=== PATIENT | female | born 1980 | race Caucasian/White ===

== ENCOUNTER 2020-10-12 11:37 | Emergency (ER) | payer OTHER, SELFPAY ==
[2020-10-12 11:46] VITALS: BP 130/82; PULSE 97; RESP 16; TEMP 37.1; O2SAT 98
--- NOTE | 2020-10-12 12:40 | ED.URI ---
HPI - URI/Sore Throat General Chief Complaint: Urogenital-Female Stated Complaint: diahhrea sore throat nausea Time Seen by Provider: 10/12/20 12:06 Source: patient and RN notes reviewed Mode of arrival: ambulatory Limitations: no limitations History of Present Illness HPI Narrative: Patient presents today with a 2-day history of nausea, diarrhea, chills, mild left flank pain, dysuria. Left flank pain radiates to the left lower quadrant. Denies hematuria, urgency, frequency. She has been taking Tylenol for her symptoms. Patient reports that she had a gastric bypass in June and has had some kidney stones since that time. She also reports an intermittent sore throat over the past couple of days, but this has since resolved. Related Data Home Medications Medication Instructions Recorded Confirmed atenolol 50 mg PO DAILY 10/12/20 10/12/20 nortriptyline 25 mg PO DAILY 10/12/20 10/12/20 warfarin [Coumadin] 1 mg PO QMWF 10/12/20 10/12/20 warfarin [Coumadin] 2 mg PO [id number] 10/12/20 10/12/20 Allergies Allergy/AdvReac Type Severity Reaction Status Date / Time No Known Allergies Allergy Verified 10/12/20 11:55 Review of Systems Review of Systems: CONSTITUTIONAL: Denies body aches, fever, chills, or sweats. EYES: Denies visual changes, redness, or discharge. ENT: Denies rhinorrhea, congestion, sore throat, or otalgia. CARDIOVASCULAR: Denies chest pain, palpitations, or edema. RESPIRATORY: Denies cough or dyspnea. GASTROINTESTINAL: Denies abdominal pain, or diarrhea.+ Nausea and vomiting, left flank pain GENITOURINARY: Denies hematuria.+ Dysuria SKIN: Denies rash, itching, or wounds. MUSCULOSKELETAL: Denies back pain, joint pain, or myalgia. NEUROLOGIC: Denies headache, numbness, tingling, or weakness. PSYCH: Denies depression or anxiety. [facility] Past Medical History Medical History (Updated 10/12/20 @ 14:25 by Sarahi Hamilton, PAXTON, BC) History of DVT (deep vein thrombosis) Surgical History Surgical History (Updated 10/12/20 @ 14:25 by Sarahi Hamilton, PAX[place], ) H/O gastric bypass Social History Social History Smoking status: Never smoker Comments At time of signature, I have reviewed and agree with nursing past medical, surgical, social and family history unless otherwise noted. Please see nursing chart for further information. There is no relevant family history pertinent to the presenting complaint Exam Narrative: GENERAL: Well-appearing, well-nourished, and in no acute distress. HEAD: Normocephalic, atraumatic. EYES: EOMI. No redness or drainage. Conjunctivae normal. ENT: Mucous membranes pink and moist. Nares clear. No rhinorrhea. TMs normal bilaterally. Throat normal. Uvula midline. NECK: Normal AROM. Supple. No lymphadenopathy. CHEST: No respiratory distress. Clear to auscultation. HEART: Regular rate and rhythm. No murmur appreciated. Normal peripheral pulses. ABDOMEN: Soft, nontender, nondistended, normal active bowel sounds. + Mild left CVAT MUSCULOSKELETAL: No bony tenderness. EXTREMITIES: Normal range of motion. No edema. SKIN: Warm, dry, no rash. Capillary refill normal. Normal skin turgor. NEURO: No focal deficits. Alert and oriented x3. Gait steady. PSYCH: Normal affect. No signs of depression or anxiety. Course Vital Signs Vital signs: Vital Signs Temperature 98.7 F 10/12/20 11:46 Pulse Rate 97 10/12/20 11:46 Respiratory Rate 16 10/12/20 11:46 Blood Pressure 130/82 10/12/20 11:46 Pulse Oximetry 98 10/12/20 11:46 Temperature 98.7 F 10/12/20 11:46 Pulse Rate 97 10/12/20 11:46 Respiratory Rate 16 10/12/20 11:46 Blood Pressure 130/82 10/12/20 11:46 Pulse Oximetry 98 10/12/20 11:46 Reviewed. Pt has been instructed to follow up with her PCP regarding her elevated blood pressure today. MDM - URI/Sore Throat Differential Diagnosis Differential diagnosis: Likely other (UTI, jossy
== END 2020-10-12 12:49 | disposition home or self-care (01) ==
PROVIDERS: Emergency Provider Nurse Practitioner; PCP Physician Assistant
DX: N30.01 Acute cystitis with hematuria (principal); Z86.718 Personal history of other venous thrombosis and embolism; Z98.84 Bariatric surgery status; Z79.01 Long term (current) use of anticoagulants
CPT/HCPCS: 81003; 87077; 87081; 87086; 87088; 87186; 87880; 99203; G0463

== ENCOUNTER 2024-05-30 19:25 | Emergency (ER) | payer OTHER, SELFPAY ==
--- NOTE | ~2024-05-30 | XR_ITS ---
CHEST RADIOGRAPH, PA AND LATERAL CLINICAL HISTORY: palpitations DRAPERY WORKER . COMPARISON: None available TECHNIQUE: PA and lateral views of the chest. FINDINGS The cardiomediastinal silhouette is unremarkable. The lungs are clear. Visualized osseous structures and soft tissues are unremarkable. IMPRESSION: No focal infiltrate or effusion. Reviewed, dictated and finalized at location A.
--- OUTSIDE RECORDS SUMMARY | 2024-05-30 19:28 | XMS_ITS | Clinical Summary ---
Author Organization [facility] Address [address] [place] [address] Phone Care Team Providers Care Tandem Operator Name Role Phone Ganesh Buck Primary Care Provider [phone] Allergies No known active allergies Medications Vit-Fe Fumarate-FA ( VITAMIN PO) Take 1 Tab by mouth daily. Reported on 06/29/2016 Active HYDROcodone-turner taminophen (NORCO) 5-325 MG TabletIndicatio ns:Moderate to Moderately Severe Pain Take 1-2 Tabs by mouth every 4 hours as needed for Pain. Indications: Moderate to Moderately Severe Pain 30 Tab 0 6 Active Additional Information Patient not taking.Reported on 06/29/2016 ibuprofen (MOTRIN) 600 MG Tablet Take 1 Tab by mouth every 6 hours as needed for Pain. 30 Tab 3 6 Active Additional Information Patient not taking.Reported on 06/29/2016 PARoxetine (PAXIL) 10 MG Tablet Take 10 mg by mouth daily. Active ondansetron (ZOFRAN) 4 MG Tablet Take 1-2 Tablets by mouth every 8 hours as needed for Nausea - 1st line. 10 Tablet Active Active Problems Problem Noted Date Diagnosed Date Adjustment disorder with mixed anxiety and depre ssed mood 06/30/2016 Encounters Date Type Department Care Team Description 05/02/2024 5:35 AM APPLIANCE SERVICER - 05/02/2024 7:09 AM APPLIANCE SERVICER Emergency [facility] [address] [place] [address] Jeramy Flores, DO Vomiting Discharge Disposition: Discharged to home or Selfcare 05/02/2024 Travel from Last 3 Months Family History Medical History Relation Name Comments Heart Attack Maternal Grandfather Heart Disease Maternal Grandfather Diabetes Maternal Grandmother Heart Attack Maternal Grandmother Heart Disease Maternal Grandmother Heart Disease Mother Hypertension Mother Migraines Mother Relation Name Status Comments Father Alive Maternal Grandfather Maternal Grandmother Mother Alive Social History Tobacco Use Types Packs/Day Years Used Date Smoking Tobacco: Former Cigarettes 0.1 3 0 06/18/2002 - 06/18/2005 Smokeless Tobacco: Never Alcohol Use Standard Drinks/Week Comments No 0 (1 standard drink = 0.6 oz pur e alcohol) Sexually Active Control Partners Comments Yes Male Comments No Sex and Gender Information Value Date Recorded Sex Assigned at Not on file Legal Sex Female 7:08 PM CDT Gender Identity Not on file Sexual Orientation Not on file Last Filed Vital Signs Vital Sign Reading Time Taken Comments Blood Pressure 106/54 05/02/2024 7:00 AM APPLIANCE SERVICER Pulse 95 05/02/2024 7:00 AM APPLIANCE SERVICER Temperature 37.6 C (99.7 F) 05/02/2024 7:00 AM APPLIANCE SERVICER Respiratory Rate 16 05/02/2024 7:00 AM APPLIANCE SERVICER Oxygen Saturation 100% 05/02/2024 7:00 AM APPLIANCE SERVICER Inhaled Oxygen Concentration - - Weight 75.7 kg (166 lb 14.2 oz) 05/02/2024 5:43 AM APPLIANCE SERVICER Height 167.6 cm (5' 6 ) 05/02/2024 5:43 AM APPLIANCE SERVICER Body Mass Index 26.94 05/02/2024 5:43 AM APPLIANCE SERVICER Plan of Treatment Health Maintenance Due Date Last Done Comments Hepatitis C Virus (HCV) Screening 1981 Mammogram 1981 TdaP Immunization 1981 Hepatitis B Immunization (1 of 3 - 19+ 3-dose series) 2000 Pap Smear 2002 Cervical Cancer Screening (CCS) 09/04/2011 HPV/Cotest 09/04/2011 Discussion re Starting/Frequ ency of Mammograms 2021 Influenza Immunization (#1) 2023 SARS-COV-2 Immunization ( season) 2023 Respiratory Syncytial Virus (RSV) Immunization (Adult) (1 - 1-dose 75+ series) 2056 Meningococcal Immunization (ACWY) Aged Out No longer eligible based on patient's age to complete this topic Pneumococcal Immunization Combined Aged Out No longer eligible based on patient's age to complete this topic Rotavirus Immunization Aged Out No lo nger eligible based on patient's age to complete this topic Procedures Procedure Name Priority Date/Time Associated Diagnosis Comments POCT URINE HCG () STAT 05/02/2024 6:41 AM APPLIANCE SERVICER CBC WITH AUTO DIFFERENTIAL STAT 05/02/2024 6:16 AM APPLIANCE SERVICER COMPLETE BLOOD COUNT (CBC) WITH DIFF STAT 05/02/2024 6:16 AM APPLIANCE SERVICER CMP (COMPREHENSIVE METABOLIC PANEL) STAT 05/02/2024 6:16 AM APPLIANCE SERVICER RSV,SARS-COV-2,INFLUE NZA A&B BY PCR STAT 05/02/2024 5:45 AM APPLIANCE SERVICER from Last 3 Months Results * POCT Urine HCG () (05/02/2024 6:41 AM APPLIANCE SERVICER) Pathologist [facility] POC URINE Negative POC URINE CONTROL Card Feeder Pass Urine 05/02/2024 6:41 AM APPLIANCE SERVICER Jeramy Flores DO POINT OF CARE TESTING ( MANUAL) Final Result * (ABNORMAL) CBC with Auto Differential (05/02/2024 6:16 AM APPLIANCE SERVICER) Pathologist [facility] WBC 6.08 4.00 - 12.00 10(3)/mcL 05/02/2024 6:57 AM APPLIANCE SERVICER [facility] RBC 4.96 3.80 - 5.30 10(6)/mcL 05/02/2024 6:57 AM APPLIANCE SERVICER [facility] HEMOGLOBIN (HGB) 12.4 12.0 - 15.8 g/dL 05/02/2024 6:57 AM APPLIANCE SERVICER [facility] HEMATOCRIT (HCT) 40.3 36.0 - 47.0 % 05/02/2024 6:57 AM [facility] MCV 81.3(L) 82.0 - 96.0 fL 05/02/2024 6:57 AM [facility] MCH 25.0(L) 26.0 - 34.0 pg 05/02/2024 6:57 AM [facility] MCHC 30.8(L) 31.0 - 36.0 g/dL 05/02/2024 6:57 AM [facility] PLATELET COUNT 248 140 - 440 10(3)/mcL 05/02/2024 6:57 AM [facility] RDW 21.9(H) 11.8 - 15.5 % 05/02/2024 6:57 AM [facility] MPV 10.6 9.7 - 12.4 fL 05/02/2024 6:57 AM [facility] NEUTROPHILS 91.8(H) 47.0 - 73.0 % 05/02/2024 6:57 AM [facility] LYMPHOCYTES 3.5(L) 18.0 - 42.0 % 05/02/2024 6:57 AM [facility] MONOCYTES 3.9(L) 4.0 - 12.0 % 05/02/2024 6:57 AM [facility] EOSINOPHILS 0.3 0.0 - 5.0 % 05/02/2024 6:57 AM [facility] BASOPHILS 0.5 0.0 - 1.0 % 05/02/2024 6:57 AM [facility] ABSOLUTE NEUTROPHILS 5.58 1.60 - 7.70 10(3)/mcL 05/02/2024 6:57 AM [facility] ABSOLUTE LYMPHOCYTES 0.21(L) 1.30 - 3.20 10(3)/mcL 05/02/2024 6:57 AM [facility] ABSOLUTE MONOCYTES 0.24 0.20 - 1.00 10(3)/mcL 05/02/2024 6:57 AM [facility] ABSOLUTE EOSINOPHIL 0.02 0.00 - 0.40 10(3)/mcL 05/02/2024 6:57 AM APPLIANCE SERVICER [facility] ABSOLUTE BASOPHILS 0.03 0.00 - 0.10 10(3)/mcL 05/02/2024 6:57 AM APPLIANCE SERVICER [facility] NRBC PER 100 WBC 0 05/03/19 6:57 AM APPLIANCE SERVICER [facility] RESULTS ARE CONSISTENT WITH PERIPHERAL SMEAR REVIEW Yes 05/02/2024 6:57 AM [facility] RBC MORPHOLOGY CONSISTENT WITH INDICES Yes 05/02/2024 6:57 AM [facility] LARGE PLATELETS 1+ 6:57 AM [facility] Blood Venipuncture / Unknown 05/02/2024 6:16 AM APPLIANCE SERVICER 05/02/2024 6:25 AM APPLIANCE SERVICER us Jeramy Flores DO HEMATOLOGY ORDERABLES F inal Result [facility] [address] [place] [address] * (ABNORMAL) CMP (Comprehensive Metabolic Panel) (05/02/2024 6:16 AM APPLIANCE SERVICER) SODIUM 140 136 - 145 mmol/L 05/02/2024 6:47 AM [facility] POTASSIUM 3.9 3.5 - 5.1 mmol/L 05/02/2024 6:47 AM [facility] CHLORIDE 110(H) 98 - 107 mmol/L 05/02/2024 6:47 AM [facility] CO2, VENOUS 22 22 - 30 mmol/L 05/02/2024 6:47 AM [facility] ANION GAP 11.9 <18.0 mmol/L 05/02/2024 6:47 AM [facility] GLUCOSE 141(H) 70 - 99 mg/dL 05/02/2024 6:47 AM [facility] BUN 17 5 - 18 mg/dL 05/02/2024 6:47 AM [facility] CREATININE, BLOOD 0.88 0.60 - 1.00 mg/dL 05/02/2024 6:47 AM [facility] BUN/CREATININE RATIO 19 12 - 20 ratio 05/02/2024 6:47 AM [facility] TOTAL PROTEIN 7.3 6.0 - 8.0 g/dL 05/02/2024 6:47 AM [facility] ALBUMIN 4.0 3.5 - 5.0 g/dL 05/02/2024 6:47 AM [facility] A/G RATIO 1.2 1.0 - 2.2 05/02/2024 6:47 AM [facility] CALCIUM 8.7 8.7 - 10.5 mg/dL 05/02/2024 6:47 AM [facility] T BILI 0.6 0.2 - 1.2 mg/dL 05/02/2024 6:47 AM [facility] SGOT (AST) 31 <43 U/L 05/02/2024 6:47 AM [facility] SGPT (ALT) 46 <56 U/L 05/02/2024 6:47 AM [facility] ALKALINE PHOSPHATASE 82 40 - 150 U/L 05/02/2024 6:47 AM [facility] GFR, ESTIMATED >60 >=60 05/02/2024 6:47 AM [facility] Comment: Creatinine Clearance is the preferred criteria for selecting drug dose adjustments in renally impaired patients. The GFR is provided as additional pertinent clinical information. GFR is reported in mL/min/1.73 sq m. Calculation based on the Chronic Kidney Disease Epidemiology Collaboration (CKD- EPI) equation refit without adjustment for race. GFR, EST. >60 >=60 025 6:47 AM [facility] GFR, EST. NONAFRICAN >60 >=60 05/02/2024 6:47 AM [facility] Blood Venipuncture / Unknown 05/02/2024 6:16 AM APPLIANCE SERVICER 05/02/2024 6:25 AM APPLIANCE SERVICER us Jeramy Flores DO CHEMISTRY ORDERABLES Fi nal Result Performing Organization Address City/[facility]/ZIP Co de Phone Number [facility] [address] [place] [address] * RSV,SARS-COV-2,INFLUENZA A&B BY PCR (05/02/2024 5:45 AM APPLIANCE SERVICER) FLU A Negative Negative, Error 05/02/2024 6:53 AM APPLIANCE SERVICER [facility] FLU B Negative Negative 05/02/2024 6:53 AM APPLIANCE SERVICER [facility] RESP SYNC VIRUS Negative Negative 6:53 AM APPLIANCE SERVICER [facility] SARSCOV2 NOT DETECTED (Reference Range for this test is Not Detected) 05/02/2024 6:53 AM APPLIANCE SERVICER [facility] Comment:This test was perfor med by a Reverse Mixing Machine Tender Cork Gasket PCR Method. Swab NASOPHARYNGEAL STRUCTURE / Unknown Non-Phlebotomy Collection / Unknown 05/02/2024 5:45 AM APPLIANCE SERVICER 05/02/2024 6:06 AM APPLIANCE SERVICER us Kevin Lo MD MICROBIOLOGY - GENERAL ORD ERABLES Final Result Performing Organization Address City/[facility]/ZIP Co de Phone Number [facility] [address] [place] [address] from Last 3 Months Insurance MEDICAID OLEARY Advance Directives * Full Code (Latest Code Status on File) Date Activated Date Inactivated Comments 09/11/2015 5:47 AM 09/14/2015 12:15 PM CPR-Full Tr eatment: FULL ARREST: Attempt Resuscitation/CPR wit intubation and mechanical ventilation. PRE-ARREST: Use entire range of life support measures to stabilize the patient. * Full Code Date Activated Date Inactivated Comments 08/16/2015 9:00 PM 08/17/2015 12:55 AM CPR-Full Tr eatment: FULL ARREST: Attempt Resuscitation/CPR wit intubation and mechanical ventilation. PRE-ARREST: Use entire range of life support measures to stabilize the patient. * Full Code Date Activated Date Inactivated Comments 06/19/2015 12:09 PM 06/19/2015 4:23 PM CPR-Full Tr eatment: FULL ARREST: Attempt Resuscitation/CPR wit intubation and mechanical ventilation. PRE-ARREST: Use entire range of life support measures to stabilize the patient. Care Teams Tandem Operator Relationship Specialty Start Date End Date Ganesh Buck, [address] [place] [address] PCP - General Physician Radiology Nurse 06/17/16
--- OUTSIDE RECORDS SUMMARY | 2024-05-30 19:28 | XMS_ITS | Encounter Summary ---
Author Organization [facility] Address [address] [place] [address] Phone Care Team Providers Care Bakery Demonstrator Name Role Phone Ganesh Buck Primary Care Provider [phone] Encounter Details Date Type Department Care Team (Late st Contact Info) Description 07/10/2020 Telephone [facility] Surgery [address] [place] [address] Medical Office Building [address] [place] [address] Wen Kessler Social History Tobacco Use Types Packs/Day Years Used Date Smoking Tobacco: Never Smokeless Tobacco: Never Alcohol Use Standard Drinks/Week Comments No 0 (1 standard drink = 0.6 oz pur e alcohol) AUDIT-C Answer Date Recorded Q1: How often do you have a drink containing alc ohol? Never 07/01/2020 Average Number of Drinks Not on file 021 Frequency of Binge Drinking Not on file 05/2020 Comments No Sex and Gender Information Value Date Recorded Sex Assigned at Not on file Legal Sex Female 11:50 PM LANGUAGE TRANSLATOR Gender Identity Not on file Sexual Orientation Straight 08/18/2020 12 :35 PM CDT documented as of this encounter Plan of Treatment Not on file documented as of this encounter Visit Diagnoses Not on filedocumented in this encounter Additional Health Concerns Infection Onset Date Last Indicated Resolved Time COVID: Suspected 03/13/2021 03/13/2021 03/13/2021 8:37 AM LANGUAGE TRANSLATOR COVID19 03/13/2021 03/13/2021 03/23/2021 3:05 AM LANGUAGE TRANSLATOR COVID: Recovered Comment:Added based on recent COVID infection. 03/23/2021 04/23/2021 07/21/2021 3:07 AM C DT COVID: Suspected 10/09/2021 10/09/2021 10/09/2021 5:06 PM CDT COVID: Suspected 10/09/2021 10/09/2021 10/09/2021 9:59 PM CDT COVID: Suspected 01/01/2022 01/01/2022 01/01/2022 5:06 PM CDT COVID: Suspected 02/10/2022 02/10/2022 02/10/2022 5:33 PM LANGUAGE TRANSLATOR COVID19 02/10/2022 02/10/2022 02/20/2022 3:05 AM LANGUAGE TRANSLATOR COVID: Recovered Comment:Added based on recent COVID infection. 02/20/2022 02/24/2022 05/21/2022 3:05 AM C DT COVID: Suspected 04/23/2022 04/23/2022 04/23/2022 9:32 AM LANGUAGE TRANSLATOR Influenza, adult 04/23/2022 04/23/2022 04/30/2022 3:07 AM LANGUAGE TRANSLATOR COVID: Suspected 08/25/2023 08/25/2023 08/25/2023 12:00 PM CDT documented as of this encounter Care Teams Bakery Demonstrator Relationship Specialty Start Date End Date Ganesh Buck PA [address] [place] [address] PCP - General 12/16/16 documented as of this encounter
--- OUTSIDE RECORDS SUMMARY | 2024-05-30 19:28 | XMS_ITS | Referral Summary ---
Author Organization [facility] Address [address] [place] [address] Care Team Providers Care Sandblaster Supervisor Name Role Phone Ganesh Buck Primary Care Provider [phone] Encounters Date Type Department Care Team Description 04/04/2024 1:29 PM HONING MACHINE OPERATOR - 04/04/2024 11:59 PM HONING MACHINE OPERATOR Hospital Encounter [facility] Cardiology [address] [place] [address] Sinus tachycardia Discharge Disposition: Discharge to home or self care from Last 3 Months Allergies No known active allergies Medications atenoloL (TENORMIN) 50 mg tablet Take 1 tablet (50 mg total) by mouth daily 2 Active buPROPion SR (WELLBUTRIN SR) 200 mg 12 hr tablet Take 1 tablet (200 mg total) by mouth 2 (two) times a day 2 Active busPIRone (BUSPAR) 5 mg tablet Take 1 tablet (5 mg total) by mouth 2 (two) times a day 2 Active medroxyPROGESTE John 150 mg/mL injection ADMINISTER 1 ML IN THE MUSCLE EVERY 3 MONTHS 2 Active atorvastatin (LIPITOR) 20 mg tablet Take 1 tablet (20 mg total) by mouth daily 4 Active Active Problems Problem Noted Date Diagnosed Date Abdominal panniculus 09/28/2021 History of bariatric surgery 09/28/2021 Bariatric surgery status 01/15/2021 Nutritional counseling 10/09/2020 Portal vein thrombosis 07/11/2020 Assessment & Plan (07/11/2020 11:24 AM CDT): While isolated PV thrombosis in absence of cirrhosis is rare, it is most likely a complication from recent gastric bypass surgery via a local inflammatory effect. Patient has no h/o thrombosis and no family history of thrombophilia. She is a non-smoker. Her only risks for thrombosis are obesity and hormonal contraceptive depot injections. She has not had COVID vaccine or COVID. I do not believe she requires a thrombophilia work-up at this time. She has no evidence of a myeloproliferative disorder as her Hgb is low, plt are normal, and WBC is normal. As far as treatment, I have discussed options of warfarin vs eliquis. I would favor eliquis; patient agrees. Her rapidly changing diet would make warfarin dosing difficult. She will need anticoagulation for 3-6 months for first episode of provoked thromboembolism. RECS: -stop heparin now -Start eliquis 10mg BID for 7 days, then 5mg BID for 3-6 months -Advised for patient to discuss with ob-air hose coupler about switching to non-hormonal method of contraception -Agree with extremity US to r/o occult DVT Sinus tachycardia 07/11/2020 Assessment & Plan (07/11/2020 9:59 AM CDT): Unclear etiology. Perhaps hypovolemic in s/o recent gastric bypass. Other evidence for hypovolemia includes severe AGMA. She is asymptomatic and ST has improved after fluids. CT chest negative for PE. Continue home atenolol. No further w/u recommended High anion gap metabolic acidosis 07/11/2020 Assessment & Plan (07/11/2020 9:59 AM CDT): Suspect starvation ketosis related to recent gastric bypass and reported 15lbs weight loss. AGMA improved as expected with IVF. Iron deficiency anemia 07/11/2020 Assessment & Plan (07/11/2020 10:00 AM CDT): Recent iron labs show profound iron deficiency. Ferritin 8, iron 21, iron sat 4%. Hgb stable ~10-11. Continue PO iron. Consider IV iron in future if doesn't improve with PO. Low back pain 03/14/2020 Essential hypertension 03/14/2020 Assessment & Plan (07/11/2020 9:53 AM CDT): Continue atenolol. Major depressive disorder, recurrent episode, mi ld 03/14/2020 Resolved Problems Problem Noted Date Diagnosed Date Resolved Date Morbid obesity (CMS/HCC) 02/27/2020 Assessment & Plan (07/11/2020 9:53 AM CDT): S/p recent gastric bypass. Social History Tobacco Use Types Packs/Day Years Used Date Smoking Tobacco: Never Smokeless Tobacco: Never Tobacco Cessation:Counseling Given: Not Answered Alcohol Use Standard Drinks/Week Comments No 0 [...] on file Legal Sex Female 11:50 PM HONING MACHINE OPERATOR Gender Identity Not on file Sexual Orientation Straight 08/18/2020 12 :35 PM CDT Last Filed Vital Signs Vital Sign Reading Time Taken Comments Blood Pressure 112/77 01/12/2024 9:56 AM HONING MACHINE OPERATOR Pulse 69 01/12/2024 9:56 AM HONING MACHINE OPERATOR Temperature 36.1 C (97 F) 08/25/2023 11:40 AM CDT Respiratory Rate 16 08/25/2023 11:40 AM CDT Oxygen Saturation 99% 08/25/2023 11:40 AM CDT Inhaled Oxygen Concentration - - Weight 72.6 kg (160 lb) 04/04/2024 1:45 PM HONING MACHINE OPERATOR Height 167.6 cm (5' 6 ) 04/04/2024 1:45 PM HONING MACHINE OPERATOR Body Mass Index 25.82 04/04/2024 1:45 PM HONING MACHINE OPERATOR Plan of Treatment Not on file Procedures Procedure Name Priority Date/Time Associated Diagnosis Comments TRANSTHORACIC ECHO (TTE) COMPLETE W DOPPLER/CF WO CONTRAST Routine 04/04/2024 2:49 PM HONING MACHINE OPERATOR Sinus tachycardia from Last 3 Months Results * TRANSTHORACIC ECHO (TTE) COMPLETE W DOPPLER/CF WO CONTRAST (04/04/2024 2:49 PM HONING MACHINE OPERATOR) LV EF % CONS SCIMAGE Anatomical Region Laterality Modality Ultrasound 04/04/2024 1:50 PM HONING MACHINE OPERATOR Narrative 04/04/2024 2:54 PM HONING MACHINE OPERATOR [address] [address] Echocardiogram Report Patient Name: CRISTINA MCKEON : 1980 Study Date: 04/04/2024 1:50:22 PM Gender: F Tech: REHANGER Location: Echo Lab 2 Ref Provider: VERONICA AGUILAR Height(Cm): 168 BSA: 1.84 Weight(Kg): 72.6 Quality: Adequate Order Provider: VERONICA AGUILAR PROCEDURES: Echocardiographic Report: Transthoracic echocardiogram with complete 2D, M-Mode, and color Doppler examination. INDICATIONS: R00.0 Tachycardia, unspecified. MEASUREMENTS: 2D/MM Value Range Doppler Value Range EF Teich MM 66.4 % [ 54.0 - 74.0 ] DENISE Vmax 3.31 cm2 EF Mod BP 66 % [ 54 - 74 ] AV Mean PG 2 mmHg LVIDd MM 4.65 cm [ 3.80 - 5.20 ] AV Peak Gama 1.02 m/s [ 1.00 - 1.70 ] LVIDs MM 2.95 cm [ 2.20 - 3.50 ] AV VTI 23.94 cm LVPWd MM 1.05 cm [ 0.60 - 0.90 ] LVOT Diam 2.13 cm IVSd MM 0.73 cm [ 0.60 - 0.90 ] LVOT Peak Gama 0.95 m/s [ 0.70 - 1.10 ] LA Dimension MM 2.68 cm [ 2.70 - 3.80 ] LVOT VTI 20.55 cm AoR Diam MM 2.19 cm [ 2.70 - 3.70 ] MV E Peak Gama 0.82 m/s [ 0.60 - 1.30 ] ACS MM 1.43 cm MV A Peak Gama 0.41 m/s [ 1.00 - 1.20 ] MV Mean PG 1 mmHg MV PHT 41 msec [ 20 - 100 ] MVA 5.40 MV Decel Time 181 msec [ 104 - 258 ] PV Peak Gama 1.04 m/s [ 0.40 - 0.80 ] WA Peak Gama 2.03 m/s TR Peak Gama 2.58 m/s [ 1.00 - 2.80 ] TR Peak PG 27 mmHg RVSP 32.00 mmHg [ 10.00 - 36.00 ] E` 0.12 m/s E/E` 6.68 [ <= 10.00 ] PA Pressure 32.00 mmHg [ 10.00 - 36.00 ] 2D/MM Value Range Doppler Value Range - FINDINGS: Atrial Septum: Normal atrial septum. Left Ventricle: Normal left ventricular systolic function with no focal wall motion abnormalities. Normal left ventricular size. Left ventricular wall thickness upper limits of normal. Impaired diastolic relaxation Grade I. Ejection fraction is measured at 66 %. Left Atrium: The left atrium is normal in size. Right Ventricle: Normal right ventricular size. Normal right ventricular systolic function. Right Atrium: The right atrium is normal in size. Aortic Valve: Normal structure of the aortic valve. No evidence of hemodynamically significant aortic stenosis by Doppler. Mitral Valve: Normal structure of the mitral valve. No mitral valve regurgitation is seen. Pulmonic Valve: Normal structure of the pulmonic valve. Trivial regurgitation in the pulmonic valve. Tricuspid Valve: Normal structure of the tricuspid valve. Normal right ventricular systolic pressure. Trivial regurgitation in the tricuspid valve. Pericardium: Normal pericardium with no significant pericardial effusion. Aorta: Normal aortic root. IVC: The IVC is not well visualized. Pulmonary Artery: Pulmonary artery not well visualized. CONCLUSIONS: Normal left ventricular systolic function with no focal wall motion abnormalities. Normal left ventricular size. Left ventricular wall thickness upper limits of normal. Impaired diastolic relaxation Grade I. Ejection fraction is measured at 66 %. Normal right ventricular size. Normal right ventricular systolic function. Normal structure of the mitral valve. No mitral valve regurgitation is seen. Normal structure of the aortic valve. No evidence of hemodynamically significant aortic stenosis by Doppler. Normal structure of the tricuspid valve. Normal right ventricular systolic pressure. Trivial regurgitation in the tricuspid valve. Normal pericardium with no significant pericardial effusion. Electronically Signed By: Lisa Linder MD 04/04/2024 2:53:49 PM HONING MACHINE OPERATOR Procedure Note Lisa Linder MD - 04/04/[address] [address] Echocardiogram Report Patient Name: CRISTINA MCKEON : 1980 Study Date: 04/04/2024 1:50:22 PM Gender: F Tech: REHANGER Location: Echo Lab 2 [facility] Provider: VERONICA AGUILAR Height(Cm): 168 BSA: 1.84 Weight(Kg): 72.6 Quality: Adequate Order Provider: VERONICA AGUILAR PROCEDURES: Echocardiographic Report: Transthoracic echocardiogram with complete 2D, M-Mode, and color Dopplerexamination. INDICATIONS: R00.0 Tachycardia, unspecified. MEASUREMENTS: 2D/MM Value Range Doppler ValueRange EF Teich MM 66.4 % [ 54.0 - 74.0 ] DENISE Vmax 3.31cm2 EF Mod BP 66 % [ 54 - 74 ] AV Mean PG 2 mmHg LVIDd MM 4.65 cm [ 3.80 - 5.20 ] AV Peak Gama 1.02 m/s[ 1.00 - 1.70 ] LVIDs MM 2.95 cm [ 2.20 - 3.50 ] AV VTI 23.94cm LVPWd MM 1.05 cm [ 0.60 - 0.90 ] LVOT Diam 2.13cm IVSd MM 0.73 cm [ 0.60 - 0.90 ] LVOT Peak Gama 0.95 m/s[ 0.70 - 1.10 ] LA Dimension MM 2.68 cm [ 2.70 - 3.80 ] LVOT VTI 20.55cm AoR Diam MM 2.19 cm [ 2.70 - 3.70 ] MV E Peak Gama 0.82 m/s[ 0.60 - 1.30 ] ACS MM 1.43 cm MV A Peak Gama 0.41 m/s[ 1.00 - 1.20 ] MV Mean PG 1 mmHg MV PHT 41 msec [ 20 - 100 ] MVA 5.40 MV Decel Time 181 msec [ 104 - 258 ] PV Peak Gama 1.04 m/s [ 0.40 - 0.80 ] WA Peak Gama 2.03 m/s TR Peak Gama 2.58 m/s [ 1.00 - 2.80 ] TR Peak PG 27 mmHg RVSP 32.00 mmHg [ 10.00 - 36.00 ] E` 0.12 m/s E/E` 6.68 [ <= 10.00 ] PA Pressure 32.00 mmHg [ 10.00 - 36.00 ] 2D/MM Value Range Doppler ValueRange - FINDINGS: Atrial Septum: Normal atrial septum. Left Ventricle: Normal left ventricular systolic function with no focal wall motionabnormalities. Normal left ventricular size. Left ventricular wall thickness upper limits ofnormal. Impaired diastolic relaxation Grade I. Ejection fraction is measured at 66 %. Left Atrium: The left atrium is normal in size. Right Ventricle: Normal right ventricular size. Normal right ventricular systolicfunction. Right Atrium: The right atrium is normal in size. Aortic Valve: Normal structure of the aortic valve. No evidence of hemodynamicallysignificant aortic stenosis by Doppler. Mitral Valve: Normal structure of the mitral valve. No mitral valve regurgitation isseen. Pulmonic Valve: Normal structure of the pulmonic valve. Trivial regurgitation in thepulmonic valve. Tricuspid Valve: Normal structure of the tricuspid valve. Normal right ventricular systolicpressure. Trivial regurgitation in the tricuspid valve. Pericardium: Normal pericardium with no significant pericardial effusion. Aorta: Normal aortic root. IVC: The IVC is not well visualized. Pulmonary Artery: Pulmonary artery not well visualized. CONCLUSIONS: Normal left ventricular systolic function with no focal wall motionabnormalities. Normal left ventricular size. Left ventricular wall thickness upper limits ofnormal. Impaired diastolic relaxation Grade I. Ejection fraction is measured at 66 %. Normal right ventricular size. Normal right ventricular systolicfunction. Normal structure of the mitral valve. No mitral valve regurgitation isseen. Normal structure of the aortic valve. No evidence of hemodynamicallysignificant aortic stenosis by Doppler. Normal structure of the tricuspid valve. Normal right ventricular systolicpressure. Trivial regurgitation in the tricuspid valve. Normal pericardium with no significant pericardial effusion. Electronically Signed By: Lisa Linder MD 04/04/2024 2:53:49 PM HONING MACHINE OPERATOR Veronica Aguilar MD CV ECHO PROCEDURES Fin al Result from Last 3 Months Insurance [facility] Advance Directives For more information, please contact: [phone] * Full Code (Latest Code Status on File) Date Activated Date Inactivated Comments 07/10/2020 4:49 PM 07/13/2020 6:19 PM * Full Code Date Activated Date Inactivated Comments 07/01/2020 11:43 AM 07/03/2020 5:48 PM Care Teams Sandblaster Supervisor Relationship Specialty Start Date End Date Ganesh Buck PA [address] [place] [address] PCP - General 12/16/16
--- OUTSIDE RECORDS SUMMARY | 2024-05-30 19:28 | XMS_ITS | Clinical Summary ---
Author Organization [facility] Address [address] [place] [address] Care Team Providers Care Design Quality Engineer Name Role Phone Ganesh Buck Primary Care Provider [phone] Allergies No known active allergies Medications atenoloL [...] months -Advised for patient to discuss with ob-hot knife cutter about switching to non-hormonal method of contraception [...] 9:53 AM CDT): S/p recent gastric bypass. Encounters Date Type Department Care Team Description 04/04/2024 1:29 PM BASKET GRADER - 04/04/2024 11:59 PM BASKET GRADER Hospital Encounter [facility] Cardiology 1 [place] [address] Sinus tachycardia Discharge Disposition: Discharge to home or self care from Last 3 Months Surgical History Surgery Date Site/Laterality Comments SECTION section TONSILLECTOMY Tonsillectomy DELIO-EN-Y PROCEDURE 07/01/2020 GASTRIC BYPASS 02/29/2020 - 02/27/2021 Medical History Medical History Date Comments Depression Depression Morbid obesity (HCC) Hypertension Anxiety PONV (postoperative nausea and vomiting) PONV with her tonsillectomy Family History Medical History Relation Name Comments Other Father Alive and well; Heart attack Maternal Grandfather Heart attack Maternal Grandmother in her 60s Coronary artery disease Mother Pedrito nary artery disease; Heart failure Mother Hypertension Mother Hypertension; Relation Name Status Comments Father Alive Maternal Grandfather Maternal Grandmother Mother Social History Tobacco Use Types Packs/Day Years [...] on file Legal Sex Female 11:50 PM BASKET GRADER Gender Identity Not on file Sexual Orientation Straight 08/18/2020 12 :35 PM CDT Obstetrics History Last Filed Vital Signs Vital Sign Reading Time Taken Comments Blood Pressure 112/77 01/12/2024 9:56 AM BASKET GRADER Pulse 69 01/12/2024 9:56 AM BASKET GRADER Temperature 36.1 C (97 F) 08/25/2023 11:40 AM CDT Respiratory Rate 16 08/25/2023 11:40 AM CDT Oxygen Saturation 99% 08/25/2023 11:40 AM CDT Inhaled Oxygen Concentration - - Weight 72.6 kg (160 lb) 04/04/2024 1:45 PM BASKET GRADER Height 167.6 cm (5' 6 ) 04/04/2024 1:45 PM BASKET GRADER Body Mass Index 25.82 04/04/2024 1:45 PM BASKET GRADER Plan of Treatment Health Maintenance Due Date Last Done Comments Breast Cancer Screening-Mammogram 1980 Cervical Cancer Screening 1980 Depression Screening 1980 Hepatitis C Screening 1980 DTaP/Tdap/Td Vaccine (1 - Tdap) 1992 Varicella Vaccines (1 of 2 - 13+ 2-dose series) 1994 Regular Well Visit/Exam 18-64 09/04/1999 Influenza Vaccine (#1) 2023 0, 01/24/2018, 02/14/2015 Hepatitis B Screening Completed 10/08/2014 HPV Vaccines Aged Out No longer eligi ble based on patient's age to complete this topic Pneumococcal vaccine <65 Aged Out No longer eligible based on patient's age to complete this topic Procedures Procedure Name Priority Date/Time Associated Diagnosis Comments TRANSTHORACIC ECHO (TTE) COMPLETE W DOPPLER/CF WO CONTRAST Routine 04/04/2024 2:49 PM BASKET GRADER Sinus tachycardia from Last 3 Months Results * TRANSTHORACIC ECHO (TTE) COMPLETE W DOPPLER/CF WO CONTRAST (04/04/2024 2:49 PM BASKET GRADER) LV EF % CONS SCIMAGE Anatomical Region Laterality Modality Ultrasound 04/04/2024 1:50 PM BASKET GRADER Narrative 04/04/2024 2:54 PM BASKET GRADER [address] [place] [address] Echocardiogram Report Patient Name: CRISTINA MCKEON : 1980 Study Date: 04/04/2024 1:50:22 PM Gender: F Tech: AIR CONDITIONING ENGINEER Location: Echo Lab 2 Ref Provider: VERONICA [...] 1.04 m/s [ 0.40 - 0.80 ] UT Peak Gama 2.03 m/s TR Peak Gama [...] By: Lisa Linder MD 04/04/2024 2:53:49 PM BASKET GRADER Procedure Note Lisa Linder MD - 04/04/[address] [address] Echocardiogram Report Patient Name: CRISTINA MCKEON : 1980 Study Date: 04/04/2024 1:50:22 PM Gender: F Tech: AIR CONDITIONING ENGINEER Location: Echo Lab 2 Ref Provider: VERONICA [...] 1.04 m/s [ 0.40 - 0.80 ] UT Peak Gama 2.03 m/s TR Peak Gama [...] By: Lisa Linder MD 04/04/2024 2:53:49 PM BASKET GRADER us Veronica Aguilar MD CV ECHO PROCEDURES Fin al Result from Last 3 Months Insurance [facility] Advance Directives For more information, please contact: [phone] * Full Code (Latest Code Status on File) Date Activated Date Inactivated Comments 07/10/2020 4:49 PM 07/13/2020 6:19 PM * Full Code Date Activated Date Inactivated Comments 07/01/2020 11:43 AM 07/03/2020 5:48 PM Care Teams Design Quality Engineer Relationship Specialty Start Date End Date Ganesh Buck PA [address] [place] [address] PCP - General 12/16/16
--- NOTE | 2024-05-30 19:30 | ECG_ITS ---
Test Date: 2024-05-30 19:35:13 Measurements Intervals [place] Rate: 75 P: -1 [place]: 134 QRS: 15 QRSD: 98 T: -3 QT: 402 QTc: 450 Interpretive Statements SINUS RHYTHM BORDERLINE T WAVE ABNORMALITY- ANT/INF LEADS BASELINE ARTIFACT- II, III, AVR, AVF, V4-V6 BORDERLINE ECG No previous ECG available for comparison Electronically Signed On 05-30-2024 20:25:26 CDT by Michael Leary D.O.
[2024-05-30 19:31] VITALS: BP 128/86; PULSE 77; RESP 14; TEMP 36.8; O2SAT 100
--- NOTE | 2024-05-30 19:38 | ED_ITS ---
HPI - Arrhythmia/Palpitations General Chief Complaint: Arrhythmia/Palpitations Stated Complaint: heart palpitations Time Seen by Provider: 05/30/24 19:36 Source: patient and family Mode of arrival: ambulatory Limitations: no limitations History of Present Illness HPI narrative: 43 years old white female came to the ED by private car complaining of sudden onset of hot flashes, dizziness, lightheadedness, palpitation and shortness of breath lasted for 2 minutes 1 hour later had another episode similar to the 1st 1 lasted for approximately 1-2 minutes. History of anxiety and depression, hypertension hyperlipidemia, patient vapes occasionally, does not drink or use drugs. Patient had similar symptom numerous of time in the past. Was seen by a hydroelectric plant electrician for it with normal workup. Patient denies any fever, chills, nausea, vomiting, diarrhea, constipation, headache. Currently patient feeling okay. Patient is telling me that because she is in the emergency room right now, she feels safe and more relaxed. Patient reports a lot of stress lately currently on Wellbutrin and buspirone, run out of it week ago Related Data Home Medications ?Medication ?Instructions ?Recorded ?Confirmed ?Last Taken ?Type atenolol 50 mg tablet 50 mg PO DAILY 10/12/20 10/12/20 Unknown History nortriptyline 25 mg capsule 25 mg PO DAILY 10/12/20 10/12/20 Unknown History warfarin 1 mg tablet 1 mg PO QMWF 10/12/20 10/12/20 Unknown History warfarin 2 mg tablet 2 mg PO QTUTHSASU 10/12/20 10/12/20 Unknown History Allergies Allergy/AdvReac Type Severity Reaction Status Date / Time No Known Allergies Allergy Verified 05/30/24 19:26 Review of Systems 2 Review of Systems: All systems reviewed & are unremarkable except as noted in HPI and below PMFSH Past Medical History Medical History History of DVT (deep vein thrombosis) Surgical History Surgical History H/O gastric bypass Social History Social History Smoking status: Never smoker Exam 2 Narrative: General appearance: Well-developed, well-nourished intermittent signing Skin: Normal color Head: Normocephalic, nontraumatic Eyes: Clear conjunctiva ENT: Oropharynx normal, ears normal, nose normal Neck: Supple, nontender Chest and respiratory: Airway patent, no respiratory distress, no accessory muscle use Heart: Regular rate/rhythm Abdomen: Soft, nontender, no organomegaly, quiet bowel sounds Vascular: Normal peripheral pulses, normal capillary refill. Musculoskeletal: Normal range of motion, nontender back Neurologic: Alert and oriented ?3, JET OPERATOR is normal as tested, no gross motor deficit Course Vital Signs Vital signs: Vital Signs Temperature 36.8 C 05/30/24 19:31 Pulse Rate 77 05/30/24 19:31 Respiratory Rate 14 05/30/24 19:31 Blood Pressure 128/86 05/30/24 19:31 Pulse Oximetry 100 05/30/24 19:31 Oxygen Delivery Room Air 05/30/24 19:31 Temperature 36.8 C 05/30/24 20:18 Pulse Rate 78 05/30/24 20:18 Respiratory Rate 18 05/30/24 20:18 Blood Pressure 128/86 05/30/24 20:18 Pulse Oximetry 97 05/30/24 20:18 Oxygen Delivery Room Air 05/30/24 19:40 MDM - Arrhythmia/Palpitations MDM Narrative Medical decision making narrative: Patient presents with anxiety like symptoms Vital signs are stable Physical examination showing a patient with intermittent signing. Differential diagnosis include anxiety like symptoms, panic attack, hyperthyroidism, electrolyte imbalance Blood workup today includes CBC, CMP, troponin, showed no significant abnormality EKG showed normal sinus rhythm at 75 beats per minute, normal EKG Chest x-ray showed no acute abnormalities DIAGNOSIS PALPITATION, ANXIETY LIKE SYMPTOMS PATIENT FEELS MUCH BETTER MORE RELAXED AND ASYMPTOMATIC AFTER 1 MG OF ATIVAN IV. THE PT WAS DISCHARGED TO HOME.THE PT,S CONDITION UPON DISCHARGE WAS FAIR,EDUCATION WAS PROVIDED TO THE PT IN REFERENCE TO THE FINAL IMPRESSION,DISCHARGE STUDY RESULTS,TREATMENT,PROGNOSIS AND NEED FOR FOLLOW UP . Differential Diagnosis Differential diagnosis: Likely other (As above) Medical Records Attestation: I reviewed the patient's medical records. Lab Data Attestation: I reviewed the patient's lab results. 05/30/24 19:37 05/30/24 19:37 Labs: Lab Results 05/30/24 05/30/24 Range/Units 19:36 19:37 WBC 7.4 (4.5-10.0) K/mm3 RBC 4.62 (4.2-5.4) M/mm3 Hgb 12.2 (12.0-15.0) g/dL Hct 39.3 (37.0-47.0) % MCV 85.1 (80-100) fl MCH 26.4 (26-34) pg MCHC 31.0 L (32-36) g/dl RDW 21.4 H (11.5-14.5) % Plt Count 235 (150-375) k/mm3 MPV 10.7 H (7.4-10.4) fl Immature Gran % (Auto) 0.1 (0-0.5) % Neut % (Auto) 45.1 L (45.5-73.1) % Lymph % (Auto) 40.5 (18.3-44.2) % [place] % (Auto) 9.7 H (2.6-8.5) % Eos % (Auto) 3.5 (0-4.4) % Baso % (Auto) 1.1 (0.2-1.2) % Lymph # (Auto) 2.98 (0.9-3.2) K/mm3 [place] # (Auto) 0.7 H (0.1-0.6) K/mm3 Eos # (Auto) 0.3 (0-0.3) K/mm3 Baso # (Auto) 0.1 (0.0-0.1) K/mm3 Abs Immat Gran (auto) 0.01 (0.00-0.031) K/mm3 Absolute Neuts (auto) 3.3 (1.3-6.7) K/mm3 Absolute Nucleated RBC 0.000 (0.0-0.012) K/mm3 Nucleated RBC % 0.0 (0.0-0.2) % PT 13.6 (11.1-14.7) Seconds INR 1.0 APTT 27.3 (22.3-36.8) Seconds Sodium 142 (137-145) mmol/L Potassium 3.7 (3.4-5.0) mmol/L Chloride 110 H (98-107) mmol/L Carbon Dioxide 22 (22-30) mmol/L Anion Gap 10 (4-12) mmol/L BUN 14 (7-17) mg/dL Creatinine 0.91 (0.7-1.0) mg/dL Estim Creat Clear Calc 69 ml/min Estimated GFR > 60 (59 - ) Glucose 91 (65-110) mg/dL Calcium 8.8 (8.4-10.2) mg/dL Total Bilirubin 0.4 (0.2-1.3) mg/dL AST 50 H (14-36) U/L ALT 62 H (6-35) U/L Alkaline Phosphatase 92 (38-126) U/L Troponin I < 0.012 (0.000-0.034) ng/mL Total Protein 7.0 (6.3-8.2) g/dL Albumin 4.2 (3.5-5.1) g/dL Lipase 95 (23-300) U/L TSH 0.963 (0.465-4.680) uIU/mL ECG Data EKG #1: Attestation: I personally reviewed and interpreted this ECG as follows: ECG completion date: 05/30/24 ECG completion time: 20:06 Interpretation: Normal sinus rhythm at 75 beats per minute,, normal EKG, no previous EKG available for comparison Critical Care Time Critical Care Time Critical Care Time: No Discharge Plan Discharge Clinical Impression: Palpitations, Anxiety Patient Disposition: Home, Self-Care Condition: Improved Instructions: Heart Palpitations (ED), Anxiety (ED) Additional Instructions: Return if symptoms are worsening , call your family physician for appointment, take Tylenol as as needed for aches and pain, continue home medications. Get your buspirone as soon as possible Patient Language: Tanzanian Prescriptions: No Action nortriptyline 25 mg Capsule 25 mg PO DAILY warfarin [Coumadin] 2 mg Tablet 2 mg PO QTUTHSASU warfarin [Coumadin] 1 mg Tablet 1 mg PO QMWF atenolol 50 mg Tablet 50 mg PO DAILY ondansetron 8 mg tablet,disintegrating 8 mg PO Q4-6H PRN (Reason: nausea and vomiting) Qty: 20 0RF nitrofurantoin monohyd/m-cryst [Macrobid] 100 mg capsule 100 mg PO Q12H 7 Days Qty: 14 0RF Rx Instructions: must administer with a meal/food Follow-up/Referrals: Cielo,JOHN Dao [Primary Care Provider] -
[2024-05-30 19:40] VITALS: PULSE 72; O2SAT 100
[2024-05-30] MEDS: ASPIRIN 81 MG CHEWABLE TABLET 324 MG PO (19:40)
[2024-05-30 19:44] LABS: Basophils Absolute Auto 0.1 K/mm3 (0.0-0.1); Basophils Percent Auto 1.1 % (0.2-1.2); Eosinophils Absolute Auto 0.3 K/mm3 (0-0.3); Eosinophils Percent Auto 3.5 % (0-4.4); Hematocrit 39.3 % (37.0-47.0); Hemoglobin 12.2 g/dL (12.0-15.0); Immature Granulocyte Absolute 0.01 K/mm3 (0.00-0.031); Immature Granulocyte Percent A 0.1 % (0-0.5); Lymphocytes Absolute Auto 2.98 K/mm3 (0.9-3.2); Lymphocytes Percent Auto 40.5 % (18.3-44.2); Mean Corpuscular Hemoglobin 26.4 pg (26-34); Mean Corpuscular Volume 85.1 fl (80-100); Mean Platelet Volume 10.7 fl (7.4-10.4); Monocytes Absolute Auto 0.7 K/mm3 (0.1-0.6); Monocytes Percent Auto 9.7 % (2.6-8.5); Neutrophils Absolute Auto 3.3 K/mm3 (1.3-6.7); Neutrophils Percent Auto 45.1 % (45.5-73.1); Platelet Count Result 235 k/mm3 (150-375); Red Blood Count 4.62 M/mm3 (4.2-5.4); Red Cell Distribution Width 21.4 % (11.5-14.5); White Blood Count 7.4 K/mm3 (4.5-10.0)
--- OUTSIDE RECORDS SUMMARY | 2024-05-30 19:51 | XMS_ITS | Clinical Summary ---
Author Organization [facility] Address [address] [place] [address] Care Team Providers Care Strap Machine Operator Name Role Phone Ganesh Buck Primary Care Provider [phone] Allergies No known active allergies Medications atenoloL [...] months -Advised for patient to discuss with ob-building service worker about switching to non-hormonal method of contraception [...] Department Care Team Description 04/04/2024 1:29 PM CONTROL CENTER OPERATOR - 04/04/2024 11:59 PM CONTROL CENTER OPERATOR Hospital Encounter [facility] Cardiology [address] [place] [address] Sinus tachycardia Discharge Disposition: Discharge to home [...] on file Legal Sex Female 11:50 PM CONTROL CENTER OPERATOR Gender Identity Not on file Sexual Orientation Straight 08/18/2020 12 :35 PM CDT Obstetrics History Last Filed Vital Signs Vital Sign Reading Time Taken Comments Blood Pressure 112/77 01/12/2024 9:56 AM CONTROL CENTER OPERATOR Pulse 69 01/12/2024 9:56 AM CONTROL CENTER OPERATOR Temperature 36.1 C (97 F) 08/25/2023 11:40 AM CDT Respiratory Rate 16 08/25/2023 11:40 AM CDT Oxygen Saturation 99% 08/25/2023 11:40 AM CDT Inhaled Oxygen Concentration - - Weight 72.6 kg (160 lb) 04/04/2024 1:45 PM CONTROL CENTER OPERATOR Height 167.6 cm (5' 6 ) 04/04/2024 1:45 PM CONTROL CENTER OPERATOR Body Mass Index 25.82 04/04/2024 1:45 PM CONTROL CENTER OPERATOR Plan of Treatment Health Maintenance Due Date [...] DOPPLER/CF WO CONTRAST Routine 04/04/2024 2:49 PM CONTROL CENTER OPERATOR Sinus tachycardia from Last 3 Months Results * TRANSTHORACIC ECHO (TTE) COMPLETE W DOPPLER/CF WO CONTRAST (04/04/2024 2:49 PM CONTROL CENTER OPERATOR) LV EF % CONS SCIMAGE Anatomical Region Laterality Modality Ultrasound 04/04/2024 1:50 PM CONTROL CENTER OPERATOR Narrative 04/04/2024 2:54 PM CONTROL CENTER OPERATOR [address] [place] [address] Echocardiogram Report Patient Name: CRISTINA MCKEON : 1980 Study Date: 04/04/2024 1:50:22 PM Gender: F Tech: AUTOMOTIVE DETAILER Location: Echo Lab 2 Ref Provider: VERONICA [...] 1.04 m/s [ 0.40 - 0.80 ] [place] Peak Gama 2.03 m/s [place] Peak [place]ama [...] By: Lisa Linder MD 04/04/2024 2:53:49 PM CONTROL CENTER OPERATOR Procedure Note Lisa Linder MD - 04/04/[address] [address] Echocardiogram Report Patient Name: CRISTINA MCKEON : 1980 Study Date: 04/04/2024 1:50:22 PM Gender: F Tech: AUTOMOTIVE DETAILER Location: Echo Lab 2 Ref Provider: VERONICA [...] 1.04 m/s [ 0.40 - 0.80 ] [place] 2.03 m/s [place] Peak Gama [...] By: Lisa Linder MD 04/04/2024 2:53:49 PM CONTROL CENTER OPERATOR us Veronica Aguilar MD CV ECHO PROCEDURES Fin al Result from Last 3 Months Insurance [facility] Advance Directives For more information, please contact: [phone] * Full Code (Latest Code Status on File) Date Activated Date Inactivated Comments 07/10/2020 4:49 PM 07/13/2020 6:19 PM * Full Code Date Activated Date Inactivated Comments 07/01/2020 11:43 AM 07/03/2020 5:48 PM Care Teams Strap Machine Operator Relationship Specialty Start Date End Date Ganesh Buck PA [address] [place] [address] PCP - General 12/16/16
--- OUTSIDE RECORDS SUMMARY | 2024-05-30 19:51 | XMS_ITS | Clinical Summary ---
Author Organization [facility] Address [address] [place] [address] Phone Care Team Providers Care Supreme Court Judge Name Role Phone Ganesh Buck Primary Care Provider [phone] Allergies No known active allergies Medications Vit-Fe [...] Department Care Team Description 05/02/2024 5:35 AM DIRECTOR NEWS - 05/02/2024 7:09 AM DIRECTOR NEWS Emergency [facility] Emergency [address] [place] [address] Jeramy Flores, DO Vomiting Discharge [...] Comments Blood Pressure 106/54 05/02/2024 7:00 AM DIRECTOR NEWS Pulse 95 05/02/2024 7:00 AM DIRECTOR NEWS Temperature 37.6 C (99.7 F) 05/02/2024 7:00 AM DIRECTOR NEWS Respiratory Rate 16 05/02/2024 7:00 AM DIRECTOR NEWS Oxygen Saturation 100% 05/02/2024 7:00 AM DIRECTOR NEWS Inhaled Oxygen Concentration - - Weight 75.7 kg (166 lb 14.2 oz) 05/02/2024 5:43 AM DIRECTOR NEWS Height 167.6 cm (5' 6 ) 05/02/2024 5:43 AM DIRECTOR NEWS Body Mass Index 26.94 05/02/2024 5:43 AM DIRECTOR NEWS Plan of Treatment Health Maintenance Due Date [...] URINE HCG () STAT 05/02/2024 6:41 AM DIRECTOR NEWS CBC WITH AUTO DIFFERENTIAL STAT 05/02/2024 6:16 AM DIRECTOR NEWS COMPLETE BLOOD COUNT (CBC) WITH DIFF STAT 05/02/2024 6:16 AM DIRECTOR NEWS CMP (COMPREHENSIVE METABOLIC PANEL) STAT 05/02/2024 6:16 AM DIRECTOR NEWS RSV,SARS-COV-2,INFLUE NZA A&B BY PCR STAT 05/02/2024 5:45 AM DIRECTOR NEWS from Last 3 Months Results * POCT Urine HCG () (05/02/2024 6:41 AM DIRECTOR NEWS) Pathologist [facility] POC URINE Negative POC URINE CONTROL Demand Planning Analyst Pass Urine 05/02/2024 6:41 AM DIRECTOR NEWS Jeramy Flores DO POINT OF CARE TESTING ( MANUAL) Final Result * (ABNORMAL) CBC with Auto Differential (05/02/2024 6:16 AM DIRECTOR NEWS) Pathologist [facility] WBC 6.08 4.00 - 12.00 10(3)/mcL 05/02/2024 6:57 AM DIRECTOR NEWS [facility] RBC 4.96 3.80 - 5.30 10(6)/mcL 05/02/2024 6:57 AM DIRECTOR NEWS [facility] HEMOGLOBIN (HGB) 12.4 12.0 - 15.8 g/dL 05/02/2024 6:57 AM DIRECTOR NEWS [facility] HEMATOCRIT (HCT) 40.3 36.0 - 47.0 % 05/02/2024 6:57 AM [facility] MCV 81.3(L) 82.0 - 96.0 fL 05/02/2024 6:57 AM [facility] MCH 25.0(L) 26.0 - 34.0 pg 05/02/2024 6:57 AM [facility] MCHC 30.8(L) 31.0 - 36.0 g/dL 05/02/2024 6:57 AM [facility] PLATELET COUNT 248 140 - 440 10(3)/mcL 05/02/2024 6:57 AM [facility] RDW 21.9(H) 11.8 - 15.5 % 05/02/2024 6:57 AM [facility] MPV 10.6 9.7 - 12.4 fL 05/02/2024 6:57 AM [facility] NEUTROPHILS 91.8(H) 47.0 - 73.0 % 05/02/2024 6:57 AM [facility] LYMPHOCYTES 3.5(L) 18.0 - 42.0 % 05/02/2024 6:57 AM [facility] MONOCYTES 3.9(L) 4.0 - 12.0 % 05/02/2024 6:57 AM [facility] EOSINOPHILS 0.3 0.0 - 5.0 % 05/02/2024 6:57 AM [facility] BASOPHILS 0.5 0.0 - 1.0 % 05/02/2024 6:57 AM [facility] ABSOLUTE NEUTROPHILS 5.58 1.60 - 7.70 10(3)/mcL 05/02/2024 6:57 AM [facility] ABSOLUTE LYMPHOCYTES 0.21(L) 1.30 - 3.20 10(3)/mcL 05/02/2024 6:57 AM [facility] ABSOLUTE MONOCYTES 0.24 0.20 - 1.00 10(3)/mcL 05/02/2024 6:57 AM [facility] ABSOLUTE EOSINOPHIL 0.02 0.00 - 0.40 10(3)/mcL 05/02/2024 6:57 AM DIRECTOR NEWS [facility] ABSOLUTE BASOPHILS 0.03 0.00 - 0.10 10(3)/mcL 05/02/2024 6:57 AM DIRECTOR NEWS [facility] NRBC PER 100 WBC 0 05/03/19 6:57 AM DIRECTOR NEWS [facility] RESULTS ARE CONSISTENT WITH PERIPHERAL SMEAR REVIEW Yes 05/02/2024 6:57 AM [facility] RBC MORPHOLOGY CONSISTENT WITH INDICES Yes 05/02/2024 6:57 AM [facility] LARGE PLATELETS 1+ 6:57 AM [facility] Blood Venipuncture / Unknown 05/02/2024 6:16 AM DIRECTOR NEWS 05/02/2024 6:25 AM DIRECTOR NEWS us Jeramy Flores DO HEMATOLOGY ORDERABLES F inal Result [facility] [address] [place] [address] * (ABNORMAL) CMP (Comprehensive Metabolic Panel) (05/02/2024 6:16 AM DIRECTOR NEWS) SODIUM 140 136 - 145 mmol/L 05/02/2024 6:47 AM [facility] POTASSIUM 3.9 3.5 - 5.1 mmol/L 05/02/2024 6:47 AM [facility] CHLORIDE 110(H) 98 - 107 mmol/L 05/02/2024 6:47 AM [facility] CO2, VENOUS 22 22 - 30 mmol/L 05/02/2024 6:47 AM [facility] ANION GAP 11.9 <18.0 mmol/L 05/02/2024 6:47 AM [facility] GLUCOSE 141(H) 70 - 99 mg/dL 05/02/2024 6:47 AM [facility] BUN 17 5 - 18 mg/dL 05/02/2024 6:47 AM [facility] CREATININE, BLOOD 0.88 0.60 - 1.00 mg/dL 05/02/2024 6:47 AM [facility] BUN/CREATININE RATIO 19 12 - 20 ratio 05/02/2024 6:47 AM [facility] TOTAL PROTEIN 7.3 6.0 - 8.0 g/dL 05/02/2024 6:47 AM [facility] ALBUMIN 4.0 3.5 - 5.0 g/dL 05/02/2024 6:47 AM [facility] A/G RATIO 1.2 1.0 - 2.2 05/02/2024 6:47 AM [facility] CALCIUM 8.7 8.7 - 10.5 mg/dL 05/02/2024 6:47 AM [facility] T BILI 0.6 0.2 - 1.2 mg/dL 05/02/2024 6:47 AM [facility] SGOT (AST) 31 <43 U/L 05/02/2024 6:47 AM [facility] SGPT (ALT) 46 <56 U/L 05/02/2024 6:47 AM [facility] ALKALINE PHOSPHATASE 82 40 - 150 U/L 05/02/2024 6:47 AM [facility] GFR, ESTIMATED >60 >=60 05/02/2024 6:47 AM [facility] Comment: Creatinine Clearance is the preferred criteria for selecting drug dose adjustments in renally impaired patients. The GFR is provided as additional pertinent clinical information. GFR is reported in mL/min/1.73 sq m. Calculation based on the Chronic Kidney Disease Epidemiology Collaboration (CKD- EPI) equation refit without adjustment for race. GFR, EST. >60 >=60 025 6:47 AM [facility] GFR, EST. NONAFRICAN >60 >=60 05/02/2024 6:47 AM [facility] Blood Venipuncture / Unknown 05/02/2024 6:16 AM DIRECTOR NEWS 05/02/2024 6:25 AM DIRECTOR NEWS us Jeramy Flores DO CHEMISTRY ORDERABLES Fi nal Result Performing Organization Address City/[facility]/ZIP Co de Phone Number [facility] [address] [place] [address] * RSV,SARS-COV-2,INFLUENZA A&B BY PCR (05/02/2024 5:45 AM DIRECTOR NEWS) FLU A Negative Negative, Error 05/02/2024 6:53 AM DIRECTOR NEWS [facility] FLU B Negative Negative 05/02/2024 6:53 AM DIRECTOR NEWS [facility] RESP SYNC VIRUS Negative Negative 6:53 AM DIRECTOR NEWS [facility] SARSCOV2 NOT DETECTED (Reference Range for this test is Not Detected) 05/02/2024 6:53 AM DIRECTOR NEWS [facility] Comment:This test was perfor med by a Reverse X Ray Service Engineer PCR Method. Swab NASOPHARYNGEAL STRUCTURE / Unknown Non-Phlebotomy Collection / Unknown 05/02/2024 5:45 AM DIRECTOR NEWS 05/02/2024 6:06 AM DIRECTOR NEWS us Kevin Lo MD MICROBIOLOGY - GENERAL ORD ERABLES Final Result Performing Organization Address City/[facility]/ZIP Co de Phone Number [facility] [address] [place] [address] from Last 3 Months Insurance MEDICAID OLEARY [...] measures to stabilize the patient. Care Teams Supreme Court Judge Relationship Specialty Start Date End Date Ganesh Buck, DIMPLE [address] [place] [address] PCP - General Physician Manufacturing Maintenance Manager 06/17/16
--- OUTSIDE RECORDS SUMMARY | 2024-05-30 19:51 | XMS_ITS | Encounter Summary ---
Author Organization [facility] Address [address] [place] [address] Phone Care Team Providers Care [place] Home Demonstration Agent Name Role Phone Ganesh Buck Primary Care Provider [phone] Encounter Details Date Type Department Care Team (Late st Contact Info) Description 07/10/2020 Telephone [facility] Surgery [address] [place] [address] Medical Office Building 1 [address] [place] [address] Wen Ksesler Social History Tobacco Use Types Packs/Day Years [...] on file Legal Sex Female 11:50 PM WHITE SUGAR BOILER Gender Identity Not on file Sexual Orientation Straight 08/18/2020 12 :35 PM CDT documented as of this encounter Plan of Treatment Not on file documented as of this encounter Visit Diagnoses Not on filedocumented in this encounter Additional Health Concerns Infection Onset Date Last Indicated Resolved Time COVID: Suspected 03/13/2021 03/13/2021 03/13/2021 8:37 AM WHITE SUGAR BOILER COVID19 03/13/2021 03/13/2021 03/23/2021 3:05 AM WHITE SUGAR BOILER COVID: Recovered Comment:Added based on recent COVID infection. 03/23/2021 04/23/2021 07/21/2021 3:07 AM C DT COVID: Suspected 10/09/2021 10/09/2021 10/09/2021 5:06 PM CDT COVID: Suspected 10/09/2021 10/09/2021 10/09/2021 9:59 PM CDT COVID: Suspected 01/01/2022 01/01/2022 01/01/2022 5:06 PM CDT COVID: Suspected 02/10/2022 02/10/2022 02/10/2022 5:33 PM WHITE SUGAR BOILER COVID19 02/10/2022 02/10/2022 02/20/2022 3:05 AM WHITE SUGAR BOILER COVID: Recovered Comment:Added based on recent COVID infection. 02/20/2022 02/24/2022 05/21/2022 3:05 AM C DT COVID: Suspected 04/23/2022 04/23/2022 04/23/2022 9:32 AM WHITE SUGAR BOILER Influenza, adult 04/23/2022 04/23/2022 04/30/2022 3:07 AM WHITE SUGAR BOILER COVID: Suspected 08/25/2023 08/25/2023 08/25/2023 12:00 PM CDT documented as of this encounter Care Teams County Home Demonstration Agent Relationship Specialty Start Date End Date Ganesh Buck PA [address] [place] [address] PCP - General 12/16/16 documented as of this encounter
--- OUTSIDE RECORDS SUMMARY | 2024-05-30 19:51 | XMS_ITS | Referral Summary ---
Author Organization [facility] Address [address] [place] [address] Care Team Providers Care Buckle Stringer Name Role Phone Ganesh Buck Primary Care Provider [phone] Encounters Date Type Department Care Team Description 04/04/2024 1:29 PM RAYON WINDER - 04/04/2024 11:59 PM RAYON WINDER Hospital Encounter [facility] Cardiology [address] [place] [address] Sinus tachycardia Discharge Disposition: Discharge to home [...] months -Advised for patient to discuss with ob-spike driver about switching to non-hormonal method of contraception [...] on file Legal Sex Female 11:50 PM RAYON WINDER Gender Identity Not on file Sexual Orientation Straight 08/18/2020 12 :35 PM CDT Last Filed Vital Signs Vital Sign Reading Time Taken Comments Blood Pressure 112/77 01/12/2024 9:56 AM RAYON WINDER Pulse 69 01/12/2024 9:56 AM RAYON WINDER Temperature 36.1 C (97 F) 08/25/2023 11:40 AM CDT Respiratory Rate 16 08/25/2023 11:40 AM CDT Oxygen Saturation 99% 08/25/2023 11:40 AM CDT Inhaled Oxygen Concentration - - Weight 72.6 kg (160 lb) 04/04/2024 1:45 PM RAYON WINDER Height 167.6 cm (5' 6 ) 04/04/2024 1:45 PM RAYON WINDER Body Mass Index 25.82 04/04/2024 1:45 PM RAYON WINDER Plan of Treatment Not on file Procedures Procedure Name Priority Date/Time Associated Diagnosis Comments TRANSTHORACIC ECHO (TTE) COMPLETE W DOPPLER/CF WO CONTRAST Routine 04/04/2024 2:49 PM RAYON WINDER Sinus tachycardia from Last 3 Months Results * TRANSTHORACIC ECHO (TTE) COMPLETE W DOPPLER/CF WO CONTRAST (04/04/2024 2:49 PM RAYON WINDER) LV EF % CONS SCIMAGE Anatomical Region Laterality Modality Ultrasound 04/04/2024 1:50 PM RAYON WINDER Narrative 04/04/2024 2:54 PM RAYON WINDER [address] [address] Echocardiogram Report Patient Name: CRISTINA MCKEON : 1980 Study Date: 04/04/2024 1:50:22 PM Gender: F Tech: HELICOPTER CREW CHIEF Location: Echo Lab 2 Ref Provider: VERONICA [...] 1.04 m/s [ 0.40 - 0.80 ] [place] Peak [place]ama 2.03 m/s [place] Peak Gama [...] By: Lisa Linder MD 04/04/2024 2:53:49 PM RAYON WINDER Procedure Note Lisa Linder MD - 04/04/[address] [address] Echocardiogram Report Patient Name: CRISTINA MCKEON : 1980 Study Date: 04/04/2024 1:50:22 PM Gender: F Tech: HELICOPTER CREW CHIEF Location: Echo Lab 2 [facility] Provider: VERONICA AGUILAR Height(Cm): 168 BSA: 1.84 [...] 1.04 m/s [ 0.40 - 0.80 ] [place] Peak [place]ama 2.03 m/s [place] Peak Gama [...] By: Lisa Linder MD 04/04/2024 2:53:49 PM RAYON WINDER Veronica Aguilar MD CV ECHO PROCEDURES Fin al Result from Last 3 Months Insurance [facility] Advance Directives For more information, please contact: [phone] * Full Code (Latest Code Status on File) Date Activated Date Inactivated Comments 07/10/2020 4:49 PM 07/13/2020 6:19 PM * Full Code Date Activated Date Inactivated Comments 07/01/2020 11:43 AM 07/03/2020 5:48 PM Care Teams Buckle Stringer Relationship Specialty Start Date End Date Ganesh Buck PA [address] [place] [address] PCP - General 12/16/16
[2024-05-30 19:54] LABS: Alanine Aminotransferase 62 U/L (6-35); Albumin Level 4.2 g/dL (3.5-5.1); Alkaline Phosphatase 92 U/L (38-126); Anion Gap 10 mmol/L (4-12); Aspartate Amino Transferase 50 U/L (14-36); Bilirubin,Total 0.4 mg/dL (0.2-1.3); Blood Urea Nitrogen 14 mg/dL (7-17); Calcium 8.8 mg/dL (8.4-10.2); Carbon Dioxide 22 mmol/L (22-30); Chloride 110 mmol/L (98-107); Estimated CRCL calculation 69 ml/min; Estimated Glomerular Filt Rate > 60; Glucose 91 mg/dL (65-110); Lipase 95 U/L (23-300); Potassium 3.7 mmol/L (3.4-5.0); Sodium 142 mmol/L (137-145)
[2024-05-30 19:55] LABS: Partial Thromboplastin Time 27.3 Seconds (22.3-36.8); Prothrombin Time 13.6 Seconds (11.1-14.7)
[2024-05-30 20:06] LABS: Troponin I < 0.012 ng/mL (0.000-0.034)
[2024-05-30] MEDS: LORazepam INJ (*CRX) 2 MG/ML VIAL 1 MG IV PUSH (20:09)
[2024-05-30 20:18] VITALS: BP 128/86; PULSE 78; RESP 18; TEMP 36.8; O2SAT 97
[2024-05-30 20:31] LABS: Thyroid Stimulating Hormone 0.963 uIU/mL (0.465-4.680)
== END 2024-05-30 21:00 | disposition home or self-care (01) ==
PROVIDERS: Student in an Organized Health Care Education/Training Program; Emergency Provider Emergency Medicine; PCP Physician Assistant
DX: R00.2 Palpitations (principal); F41.9 Anxiety disorder, unspecified; F32.A Depression, unspecified; I10 Essential (primary) hypertension; E78.5 Hyperlipidemia, unspecified; Z86.718 Personal history of other venous thrombosis and embolism; Z79.01 Long term (current) use of anticoagulants
CPT/HCPCS: 36415; 71046; 80053; 83690; 84443; 84484; 85025; 85610; 85730; 93005; 96374; 99284; A9270; J2060